=== PATIENT | male | born 1980 | race Caucasian/White ===

== ENCOUNTER 2019-03-08 17:03 | Emergency (ER) | payer OTHER ==
--- NOTE | 2019-03-08 17:40 | ERPHSYRPT ---
- History of Present Illness Time Seen by Provider: 03/08/19 17:27 Source: patient Exam Limitations: no limitations Patient Subjective Stated Complaint: Pt states "I have had several abscess in the same spot. I have had it surgically removed and it keeps coming back. It is on the left testicle. I saw Graciela Ramos today, I usually see Dr. Cummins. She gave me clindimycin prescription but the pain is killing me." Triage Nursing Assessment: Pt presented alert and oriented X 3, skin pwd. Pt ambulates with a wide gait, able to speak in clear full sentences. Pt has abscess noted to left posterior of testicle. Physician History: 38-year-old white male with history of diabetes asthma, sleep apnea The patient arrives with complaint of a swelling/abscess behind his left testicle for "a long time he states he went to see Graciela Ramos today who went ahead and place patient on clindamycin and set the patient up for a referral to Dr. Vallejo for possible removal of the abscess/cyst. He apparently is concerned that he wants this taken care of immediately he states he will not have it done unless under anesthesia. Is not having any fevers no nausea no vomiting. Patient does have an appointment for Dr. Vallejo in 2 days. Past medical history includes diabetes type 1, asthma, sleep apnea, hypercholesterolemia, and a sore a. Past surgical history includes abscess on his stomach. Timing/Duration: other (patient was abscess for "a long time") Severity: moderate Modifying Factors: Improves With: nothing Associated Symptoms: other (abscess behind left testicle), No abdominal pain, No shortness of breath, No heartburn, No diaphoresis, No cough, No chills, No chest pain, No fever, No headaches, No loss of appetite, No malaise, No rash, No syncope, No seizure, No weakness Allergies/Adverse Reactions: fentanyl Allergy (Intermediate, Verified 08/29/13 14:09) Itching Pt given Fentanyl in OR and started itching afterward, rash in MedSurg. Given Benadryl. acetaminophen [From Darvocet-N 100] Allergy (Verified 08/13/13 23:16) propoxyphene napsylate [From Darvocet-N 100] Allergy (Verified 08/13/13 23:16) Home Medications: Cholecalciferol (Vitamin D3) [Vitamin D] 50,000 unit PO .2XWEEKLY 12/10/16 [ History] Docusate Sodium [Doc-Q-Lace] 100 mg PO BID 12/10/16 [History] Dulaglutide [Trulicity] 1.5 mg SQ .WEEKLY 12/10/16 [History] Ezetimibe 10 mg [Zetia 10 MG] 10 mg PO DAILY 12/10/16 [History] Fenofibric Acid (Choline) [Fenofibric Acid] 135 mg PO DAILY 12/10/16 [History] Insulin Regular, Human [Humulin R] 500 unit SQ .DAILY 12/10/16 [History] Liraglutide [Victoza 3-Steven] 1.2 mg SQ DAILY 12/10/16 [History] Oxycodone HCl/Acetaminophen [Percocet 10-325 mg Tablet] 1 each PO QID 12/10/16 [ History] Hx Tetanus, Diphtheria Vaccination/Date Given: No Hx Influenza Vaccination/Date Given: No Hx Pneumococcal Vaccination/Date Given: No Immunizations Up to Date: Yes - Review of Systems Constitutional: No Fever, No Chills Eyes: No Symptoms Ears, Nose, & Throat: No Symptoms Respiratory: No Cough, No Dyspnea Cardiac: No Chest Pain, No Edema, No Syncope Abdominal/Gastrointestinal: No Abdominal Pain, No Nausea, No Vomiting, No Diarrhea Genitourinary Symptoms: Other (abscess behind left testicle) Musculoskeletal: No Back Pain, No Neck Pain Skin: No Rash Neurological: No Dizziness, No Focal Weakness, No Sensory Changes Psychological: No Symptoms Endocrine: No Symptoms All Other Systems: Reviewed and Negative - Past Medical History Pertinent Past Medical History: Yes Neurological History: No Pertinent History ENT History: No Pertinent History Cardiac History: High Cholesterol Respiratory History: Asthma, Sleep Apnea Endocrine Medical History: Diabetes Type I Musculoskeletal History: No Pertinent History GI Medical History: No Pertinent History History: No Pertinent History Psycho-Social History: No Pertinent History Male Reproductive Disorders: No Pertinent History 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 - Past Surgical History Past Surgical History: Yes Neuro Surgical History: No Pertinent History Cardiac: No Pertinent History Respiratory: No Pertinent History Gastrointestinal: No Pertinent History Genitourinary: No Pertinent History Musculoskeletal: No Pertinent History Male Surgical History: No Pertinent History Other Surgical History: abcess on stomach - Social History Smoking Status: Current every day smoker How long have you smoked: years Exposure to second hand smoke: Yes Drug Use: none Patient Lives Alone: No - Nursing Vital Signs Nursing Vital Signs: Initial Vital Signs Temperature 98.8 F 03/08/19 17:13 Pulse Rate 116 H 03/08/19 17:13 Respiratory Rate 18 03/08/19 17:13 Blood Pressure 137/84 03/08/19 17:13 O2 Sat by Pulse Oximetry 97 03/08/19 17:13 Pain Scale Pain Intensity 8 - Physical Exam General Appearance: no apparent distress, alert Eye Exam: PERRL/EOMI, eyes nml inspection Ears, Nose, Throat Exam: normal ENT inspection, TMs normal, pharynx normal, moist mucous membranes Neck Exam: normal inspection, non-tender, supple, full range of motion Respiratory Exam: normal breath sounds, lungs clear, No respiratory distress Cardiovascular Exam: regular rate/rhythm, normal heart sounds, normal peripheral pulses Gastrointestinal/Abdomen Exam: soft, normal bowel sounds, No tenderness, No mass Male Genitalia Exam: other (4-5 cm swelling behind the left testicle on the scrotal //perineal region area not hot does not appear to be tight) Back Exam: normal inspection, normal range of motion, No CVA tenderness, No vertebral tenderness Extremity Exam: normal inspection, normal range of motion, pelvis stable Neurologic Exam: alert, oriented x 3, cooperative, television receiver analyzer II-XII nml as tested, normal mood/affect, nml cerebellar function, nml station & gait, sensation nml, No motor deficits Skin Exam: normal color, warm, dry, No rash Lymphatic Exam: No adenopathy SpO2 Interpretation: normal (97%) SpO2: 97 - Course Nursing assessment & vital signs reviewed: Yes Ordered Tests: Active Orders 24 hr Category Date Time Status Wound Care STAT Care 03/08/19 19:57 Active CBC W DIFF Stat Lab 03/08/19 18:21 Completed CMP Stat Lab 03/08/19 18:21 Completed CULTURE,ABSCESS Stat Lab 03/08/19 19:57 Ordered CULTURE,WOUND Stat Lab 03/08/19 19:58 Uncollected Manual Differential NC Stat Lab 03/08/19 18:21 Completed Lab/Rad Data: Laboratory Result Diagrams 03/08/19 18:21 03/08/19 18:21 Laboratory Results 03/08/19 03/08/19 Range/Units 18:21 18:21 WBC 11.4 H (4.0-10.5) K/mm3 RBC 5.06 (4.1-5.6) M/mm3 Hgb 15.5 (12.5-18.0) gm/dl Hct 45.4 (42-50) % MCV 89.7 (78-100) fl MCH 30.6 (26-32) pg MCHC 34.1 (32-36) g/dl RDW 13.7 (11.5-14.0) % Plt Count 198 (150-450) K/mm3 MPV 11.8 H (6-9.5) fl Sodium 138 (137-145) mmol/L Potassium 4.0 (3.5-5.1) mmol/L Chloride 107 (98-107) mmol/L Carbon Dioxide 21 L (22-30) mmol/L Anion Gap 13.9 (5-15) MEQ/L BUN 10 (9-20) mg/dL Creatinine 0.66 (0.66-1.25) mg/dL Estimated GFR > 60.0 ML/MIN Glucose 299 H (74-106) mg/dL Calcium 9.5 (8.4-10.2) mg/dL Total Bilirubin 0.50 (0.2-1.3) mg/dL AST 27 (17-59) U/L ALT 30 (0-50) U/L Alkaline Phosphatase 106 (38-126) U/L Serum Total Protein 7.4 (6.3-8.2) g/dL Albumin 4.0 (3.5-5.0) g/dL - Progress Progress: improved Progress Note: 03/08/19 17:58 This is a 38-year-old white male with history of diabetes type 1, asthma, sleep apnea, hypercholesterolemia, MRSA. He arrives with complaint swelling behind his left testicle on his scrotum and perineal area for "a long time. He was apparently seen by Graciela Ramos today she apparently had ordered clindamycin for the patient and set the patient up with Dr. Vallejo on in 2 days for an appointment concerning this. Patient comes in today stating that he wants to have this taken care of tonight. He states he can't wait. He states he doesn't like the pain he is having. Is offered pain medication he does not want it at this time. He also says he will not let anybody work on this unless he is under anesthesia. I contacted Dr. Cummins he feels that the patient is at high risk for necrotizing fasciitis in view of the location of the area he didn't recommend that I talk with Dr.-Leuking Serrano felt like the patient should be referred to a urologist. I will go ahead and obtain a CBC and CMP Will discuss with [facility] for possible transfer when results are available. 03/08/19 19:34 I discussed the case with Dr. Pina at [facility] he accepted the patient for transfer. 03/08/19 19:59 Notified by the patient's nurse that the patient abscess that spontaneously ruptured. Patient states he is feeling much better. I had the patient's nurse culture the area. Will have them clean the area and apply bacitracin. the patient prefers to followup with -[facility] in 2 days to take his clindamycin as prescribed he has pain medications at home. Will advise him to do sitz baths. - Departure Departure Disposition: Home Clinical Impression: Scrotal abscess Condition: Fair Critical Care Time: No Referrals: LIT CUMMINS [Primary Care Provider] - Additional Instructions: Return home. Clean area and apply bacitracin several times daily. Sitz baths Clindamycin as prescribed by her family . Keep your appointment with Dr. Vallejo as previously arranged. 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 Return for acute distress or for any problems.
[2019-03-08 18:22] LABS: Hematocrit 45.4 % (42-50); Hemoglobin 15.5 gm/dl (12.5-18.0); Mean Cell Volume 89.7 fl (78-100); Mean Corpuscular Hemoglobin 30.6 pg (26-32); Mean Corpuscular Hgb Concent. 34.1 g/dl (32-36); Mean Platelet Volume 11.8 fl (6-9.5); Platelet Count 198 K/mm3 (150-450); Red Blood Count 5.06 M/mm3 (4.1-5.6); Red Cell Distribution Width 13.7 % (11.5-14.0); White Blood Count 11.4 K/mm3 (4.0-10.5)
[2019-03-08 18:40] LABS: ALKALINE PHOSPHATASE 106 U/L (38-126); ANION GAP 13.9 MEQ/L (5-15); BLOOD UREA NITROGEN 10 mg/dL (9-20); CHLORIDE 107 mmol/L (98-107); Calcium 9.5 mg/dL (8.4-10.2); Carbon Dioxide 21 mmol/L (22-30); Creatinine 1 0.66 mg/dL (0.66-1.25); Glucose 299 mg/dL (74-106); SGOT/AST 27 U/L (17-59); SGPT/ALT 30 U/L (0-50); SODIUM 138 mmol/L (137-145); Total Protein 7.4 g/dL (6.3-8.2)
[2019-03-08] MEDS ORDERED: BACIGUENT PACKET TP ONE (19:58)
[2019-03-08] MEDS ORDERED: BACIGUENT PACKET ONE (20:01)
[2019-03-08 20:12] VITALS: BP 104/56; PULSE 104; O2SAT 95
[2019-03-08 21:04] LABS: Eosinophil 2 % (0.00-3.0); Lymphocytes 24 % (24-44); Monocyte 8 % (0.0-12.0); Neutrophils 66 % (36.-66.); Platelet Estimate NORMAL (NORMAL); Polychromasia RARE; Total Cells Counted 100
== END 2019-03-08 20:16 | disposition home or self-care (01) ==
LOC: ED 17:03
DX: N49.2 Inflammatory disorders of scrotum (principal); Z86.14 Personal history of Methicillin resistant Staphylococcus aureus infection; E10.9 Type 1 diabetes mellitus without complications; Z79.4 Long term (current) use of insulin; Z79.899 Other long term (current) drug therapy
CPT/HCPCS: 36415; 80053; 85025; 87070; 99283; A9270-GY

== ENCOUNTER 2020-01-27 05:48 | Emergency (ER) | payer OTHER ==
--- NOTE | 2020-01-27 06:28 | ERPHSYRPT ---
- History of Present Illness Time Seen by Provider: 01/27/20 06:14 Source: patient Exam Limitations: no limitations Patient Subjective Stated Complaint: Patient states " I woke up in excruciating pain in my left knee." Patient states this has happened in the past. Patient states he has had ACL replacement 2014. Patient stated " pain started last night after I was lifting a bucket". Triage Nursing Assessment: Patient arrived to ER with brother driving. Patient A /O times 4. Patient answers questions appropriatley. Patient with strong pedal pulse to left lower extremity. Minimal swelling noted to left lower extremity. No swelling noted to left knee. Left and right knee equal in size. No redness or warmth noted to left knee. Patient states he is unable to bear weight on left lower extremity R/T to pain. Patient denies SOB. Patient denies N/V. Patient states he was lifting a bucket yesterday day evening when his started to bother him. Cap refill in extremity < 3 seconds. No bruising noted. Patient denies numbness/tingling Physician History: Patient is a 39-year-old male who presents to our ED with complaints of acute on chronic left knee pain. Patient states he was lifting a heavy bucket last night when he felt a sharp pain-like sensation at the anteromedial aspect of his left knee. Patient immediately put the bucket down. Patient states his knee felt very sore. Patient ambulated on his knee in spite of the pain. Patient awoke this morning with significant left knee pain. Pain described as an ache that is well localized. Pain reproduced with movement and palpation. Pain improved with rest. Patient admits to history of ACL construction. Patient states that he has significant arthritis and was told that he would need a knee replacement. Patient was scheduled for knee replacement but states that his surgeon retired. Patient states that he still needs a knee replacement. No other injuries reported. No other complaints. Patient declined pain medication. Patient states he does not take medication unless absolutely needed. Method of Injury: other (Lifting heavy bucket.) Occurred: yesterday Quality: constant, aching Severity of Pain-Max: moderate Severity of Pain-Current: mild Lower Extremities Pain: knee: left Modifying Factors: Improves With: movement, rest, other (Weightbearing worsens pain.) Associated Symptoms: unable to bear weight, No dizzy, No fainted, No seizure, No snapping sensation Allergies/Adverse Reactions: fentanyl Allergy (Intermediate, Verified 01/27/20 06:01) Itching Pt given Fentanyl in OR and started itching afterward, rash in MedSurg. Given Benadryl. acetaminophen [From Darvocet-N 100] Allergy (Verified 01/27/20 06:01) propoxyphene napsylate [From Darvocet-N 100] Allergy (Verified 01/27/20 06:01) Home Medications: Docusate Sodium [Doc-Q-Lace] 100 mg PO BID 12/10/16 [History] Dulaglutide [Trulicity] 1.5 mg SQ .WEEKLY 12/10/16 [History] Ezetimibe 10 mg [Zetia 10 MG] 10 mg PO DAILY 12/10/16 [History] Fenofibric Acid (Choline) [Fenofibric Acid] 135 mg PO DAILY 12/10/16 [History] Insulin Regular, Human [Humulin R] 500 unit SQ .DAILY 12/10/16 [History] Liraglutide [Victoza 3-Steven] 1.2 mg SQ DAILY 12/10/16 [History] Oxycodone HCl/Acetaminophen [Percocet 10-325 mg Tablet] 1 each PO TID 12/10/16 [ History] Hx Tetanus, Diphtheria Vaccination/Date Given: No Hx Influenza Vaccination/Date Given: Yes Hx Pneumococcal Vaccination/Date Given: No Immunizations Up to Date: Yes Travel Risk - International Travel Have you traveled outside of the country in past 3 weeks: No Have you or anyone close to you been diagnosed with or: No Do your reside in a community with a known COVID-19 case?: No - Review of Systems Constitutional: No Symptoms, No Fever, No Chills Eyes: No Symptoms Ears, Nose, & Throat: No Symptoms Respiratory: No Symptoms, No Cough, No Dyspnea Cardiac: No Symptoms, No Chest Pain, No Edema, No Syncope Abdominal/Gastrointestinal: No Symptoms, No Abdominal Pain, No Nausea, No Vomiting, No Diarrhea Genitourinary Symptoms: No Symptoms, No Dysuria Musculoskeletal: Injury, Joint Pain, No Back Pain, No Neck Pain, No Joint Redness, No Joint Swelling Skin: No Symptoms, No Rash Neurological: No Symptoms, No Dizziness, No Focal Weakness, No Sensory Changes Psychological: No Symptoms Endocrine: No Symptoms Hematologic/Lymphatic: No Symptoms Immunological/Allergic: No Symptoms All Other Systems: Reviewed and Negative - Past Medical History Pertinent Past Medical History: Yes Neurological History: No Pertinent History ENT History: No Pertinent History Cardiac History: High Cholesterol Respiratory History: Asthma, Sleep Apnea Endocrine Medical History: Diabetes Type I Musculoskeletal History: No Pertinent History GI Medical History: No Pertinent History History: No Pertinent History Psycho-Social History: No Pertinent History Male Reproductive Disorders: No Pertinent History 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 - Past Surgical History Past Surgical History: Yes Neuro Surgical History: No Pertinent History Cardiac: No Pertinent History Respiratory: No Pertinent History Gastrointestinal: No Pertinent History Genitourinary: No Pertinent History Musculoskeletal: No Pertinent History Male Surgical History: No Pertinent History Other Surgical History: abcess on stomach - Social History Smoking Status: Current every day smoker How long have you smoked: 25 years Exposure to second hand smoke: Yes Drug Use: none Patient Lives Alone: No - Nursing Vital Signs Nursing Vital Signs: Initial Vital Signs Temperature 98.5 F 01/27/20 05:59 Pulse Rate 112 H 01/27/20 05:59 Respiratory Rate 18 01/27/20 05:59 Blood Pressure 118/85 01/27/20 05:59 O2 Sat by Pulse Oximetry 97 01/27/20 05:59 Pain Scale Pain Intensity 4 - Physical Exam General Appearance: no apparent distress, alert Eyes, Ears, Nose, Throat Exam: moist mucous membranes Neck Exam: normal inspection, non-tender, supple Cardiovascular/Respiratory Exam: regular rate/rhythm, no ecchymosis, no respiratory distress, normal peripheral pulses, No splinting, No tachycardia, No decreased pulses, No accessory muscle use Gastrointestinal/Abdominal Exam: non-tender, guarding Back Exam: normal inspection, No vertebral tenderness, No muscle spasm Hips Exam: bilateral: non-tender, normal range of motion, no evidence of injury Legs Exam: bilateral leg: non-tender, normal inspection, normal range of motion , no evidence of injury Knees Exam: right knee: non-tender, normal inspection, normal range of motion, no evidence of injury, left knee: bone tenderness, pain (Tenderness to palpation at the anterior medial aspect of his left knee.), other (Left knee shows no erythema or obvious swelling. There is a well-healed anteriorly located scar over left knee from previous ACL reconstruction. All knee ligaments are stable. PT DP pulse palpable. Cap refill less than 2 seconds. Negative Homans sign. Compartments are soft. EHL, FHL, plantar flexion dorsiflexion within normal limits..) Ankle Exam: bilateral ankle: non-tender, normal inspection, normal range of motion, no evidence of injury Foot Exam: bilateral foot: non-tender, normal inspection, normal range of motion , no evidence of injury Neuro/Tendon Exam: normal sensation, normal motor functions, No no evidence tendon injury, No motor deficit, No sensory deficit, No tendon function deficit Mental Status Exam: alert, oriented x 3, cooperative Skin Exam: normal color, warm, dry SpO2 Interpretation: normal SpO2: 97 O2 Delivery: Room Air - Course Nursing assessment & vital signs reviewed: Yes - Radiology Exams Knee X-ray Interpretation: Interpreted by me (X-ray reveals tricompartmental arthritis. No fracture or dislocation. There are changes at the patella and at the tibial tuberosity possibly related to previous ACL reconstruction.) Ordered Tests: Active Orders 24 hr Category Date Time Status Gregg Bandage Application -[facility] STAT Care 01/27/20 06:47 Active Crutches STAT Care 01/27/20 06:47 Active KNEE (1 OR 2 VIEW) Stat Exams 01/27/20 06:16 Taken - Progress Progress: improved Progress Note: 01/27/20 07:02 Patient reassessed. Pain improved with rest. Patient claimed pain medication. Left knee reveals tricompartmental arthritis. No fractures or dislocations. Changes consistent with previous history of ACL reconstruction. Patient given bilateral axillary crutches and an Gregg wrap for comfort. Patient referred to orthopedic clinic. Patient will follow-up on Thursday as he is too tired to go to the orthopedic clinic today. Patient voiced no other complaints or concerns at this time. Patient states he is ready for discharge. Counseled pt/family regarding: lab results, diagnosis, need for follow-up, rad results - Departure Departure Disposition: Home Clinical Impression: Knee pain, Osteoarthritis Condition: Stable Critical Care Time: No Referrals: LIT CUMMINS [Primary Care Provider] - Instructions: Knee Pain (DC) Additional Instructions: Discharge/Care Plan MELI MCMILLAN was seen on 01/27/20 in the Emergency Room. The patient was counseled regarding Diagnosis,Lab results, Imaging studies, need for follow up and when to return to the Emergency Room. Prescriptions given: Discharge Note I have spoken with the patient and/or caregivers. I have explained the patient' s condition, diagnosis and treatment plan based on the information available to me at this time. I have answered the patient's and/or caregiver's questions and addressed any concerns. The patient and/or caregivers have as good understanding of the patient's diagnosis, condition and treatment plan as can be expected at this point. The vital signs have been stable. The patient's condition is stable and appropriate for discharge from the emergency department. The patient will pursue further outpatient evaluation with the primary care physician or other designated or consulting physician as outlined in the discharge instructions. The patient and/or caregivers are agreeable to this plan of care and follow-up instructions have been explained in detail. The patient and/or caregivers have received these instruction. The patient/and or caregivers are aware that any significant change in condition or worsening of symptoms should prompt an immediate return to this or the closest emergency department or call 911.
[2020-01-27 06:53] VITALS: BP 123/72; PULSE 99
[2020-01-27 07:00] VITALS: O2SAT 97
--- NOTE | 2020-01-27 08:41 | XRAY ---
Indication: Pain. Comparison: None AP/lateral left knee limited due to suboptimal technique on lateral view. Moderate tricompartmental degenerative changes and previous ACL reconstruction surgery. No other bony, articular, or soft tissue abnormalities.
== END 2020-01-27 07:10 | disposition home or self-care (01) ==
LOC: ED 05:48
DX: M25.562 Pain in left knee (principal); M19.90 Unspecified osteoarthritis, unspecified site; M13.862 Other specified arthritis, left knee; Z79.899 Other long term (current) drug therapy; E10.8 Type 1 diabetes mellitus with unspecified complications; G47.30 Sleep apnea, unspecified; E78.00 Pure hypercholesterolemia, unspecified; Z86.14 Personal history of Methicillin resistant Staphylococcus aureus infection
CPT/HCPCS: 73560; 99284

== ENCOUNTER 2020-05-16 11:49 | Day surgery (SDC) | payer OTHER ==
[2020-05-16] MEDS ORDERED: BUPIVACAINE 0.5% VIAL IJ ONE (11:50)
[2020-05-16] MEDS ORDERED: DIPRIVAN 200 MG/20 ML IV ONE ×2 (14:06→14:19)
[2020-05-16] MEDS ORDERED: Ketamine HCl 50 MG/ML ONE (14:06)
[2020-05-16] MEDS ORDERED: SUBLIMAZE 100 MCG/2 ML ONE (14:11)
--- NOTE | 2020-05-16 15:22 | XRAY ---
Indication: Left knee genicular nerve block. Intraoperative fluoroscopy was provided for 8 seconds. 2 digital spot images of the left knee submitted for interpretation demonstrates anterior needle tips projecting medial/lateral supracondylar and medial tibial plateau. Correlate with intraoperative findings/report. Incidental prior ACL reconstructive surgery
[2020-05-16] MEDS ORDERED: Lactated Ringers 1,000 ML IV ONE (15:31)
--- NOTE | 2020-05-16 15:41 | XRAY ---
8 seconds fluoroscopy time in surgery for left genicular nerve block.
== END 2020-05-16 14:35 | disposition home or self-care (01) ==
LOC: SDC-PAIN 11:49
PROVIDERS: ATTEND Psychiatry & Neurology Pain Medicine
DX: M17.12 Unilateral primary osteoarthritis, left knee (principal); E78.5 Hyperlipidemia, unspecified; E11.40 Type 2 diabetes mellitus with diabetic neuropathy, unspecified; F41.8 Other specified anxiety disorders; Z79.899 Other long term (current) drug therapy; Z86.79 Personal history of other diseases of the circulatory system
CPT/HCPCS: 64454; 73560; 77002; 82962; J2704; J3010

== ENCOUNTER 2021-02-13 10:02 | Day surgery (SDC) | payer OTHER ==
[2021-02-13] MEDS ORDERED: Sensorcaine 0.25% 10 ML IJ ONE (10:03)
[2021-02-13] MEDS ORDERED: Xylocaine 1% Vial 30 ML PF IJ ONE (10:03)
[2021-02-13] MEDS ORDERED: DIPRIVAN 200 MG/20 ML IV ONE (11:00)
--- NOTE | 2021-02-13 12:43 | XRAY ---
Indication: Left lumbar sympathetic nerve block. Intraoperative fluoroscopy provided for 29 seconds. 2 digital spot images submitted for interpretation demonstrates left posterior needle tip projecting just anterior to a mid lumbar segment, probably L3. Small amount of contrast injected for needle tip placement. Correlate with intraoperative findings/report.
--- NOTE | 2021-02-13 13:11 | XRAY ---
29 seconds of fluoroscopy was used in surgery for a left lumbar sympathetic nerve block.
[2021-02-13] MEDS ORDERED: Lactated Ringers 1,000 ML IV ONE (15:55)
== END 2021-02-13 11:59 | disposition home or self-care (01) ==
LOC: SDC-PAIN 10:02
PROVIDERS: ATTEND Psychiatry & Neurology Pain Medicine
DX: G90.522 Complex regional pain syndrome I of left lower limb (principal); I25.10 Atherosclerotic heart disease of native coronary artery without angina pectoris; M19.90 Unspecified osteoarthritis, unspecified site; E78.5 Hyperlipidemia, unspecified; F41.9 Anxiety disorder, unspecified; F32.9 Major depressive disorder, single episode, unspecified; E11.40 Type 2 diabetes mellitus with diabetic neuropathy, unspecified; Z79.899 Other long term (current) drug therapy
CPT/HCPCS: 64520; 72100; 77002; 82947; J2001; J2704; Q9966

== ENCOUNTER 2024-10-08 23:48 | Emergency (ER) | payer OTHER ==
[2024-10-08 23:55] VITALS: TEMP 98.6
--- NOTE | 2024-10-09 00:27 | ERPHSYRPT ---
- History of Present Illness Historian: patient Exam Limitations: no limitations Patient Subjective Stated Complaint: initially felt like gerd, then chest pain: "felt tight and like someone was squeezing me". Triage Nursing Assessment: Pt brought in by EMS. Pt c/o chest pain to center of his chest radiating to back, describes it as pressure and heaviness, a squeezing feeling. Pt thought at first it was GERD and took a tums but then the pain began. Lungs clear, heart tones reg/rapid. No edema noted. Physician History: Patient has squeezing substernal chest pain. He said it was pretty intense at first. It started around 9 PM. He called EMS and this was after a couple hours. He got a nitro and the pain decrease and then finally went away. He did not have any nausea or vomiting or shortness of breath with it. He is still pain-free at this time. He describes the pain as tight and squeezing. He said it radiated to his back. He has a history of diabetes and high cholesterol. He also has family history of heart disease as far as his risk factors ago.EMS gave him sublingual nitro and then Nitropaste. Location: substernal Prior Chest Pain/Cardiac Workup: no prior chest pain, no prior cardiac workup Nitro Today/Relief: 0.4 mg x 1, provided by EMS Aspirin Treatment Today: 81 mg x 4, provided by EMS Allergies/Adverse Reactions: fentanyl Allergy (Intermediate, Verified 10/08/24 23:55) Itching Pt given Fentanyl in OR and started itching afterward, rash in MedSurg. Given Benadryl. acetaminophen [From Darvocet-N 100] Allergy (Verified 10/08/24 23:55) propoxyphene napsylate [From Darvocet-N 100] Allergy (Verified 10/08/24 23:55) Home Medications: Docusate Sodium [Doc-Q-Lace] 100 mg PO BID 12/10/16 [History] Dulaglutide [Trulicity] 1.5 mg SQ .WEEKLY 12/10/16 [History] Ezetimibe 10 mg [Zetia 10 MG] 10 mg PO DAILY 12/10/16 [History] Fenofibric Acid (Choline) [Fenofibric Acid] 135 mg PO DAILY 12/10/16 [History] Insulin Regular, Human [Humulin R] 500 unit SQ .DAILY 12/10/16 [History] Liraglutide [Victoza 3-Steven] 1.2 mg SQ DAILY 12/10/16 [History] Oxycodone HCl/Acetaminophen [Percocet 10-325 mg Tablet] 1 each PO TID 12/10/16 [History] Hx Tetanus, Diphtheria Vaccination/Date Given: No Hx Influenza Vaccination/Date Given: No Hx Pneumococcal Vaccination/Date Given: No Travel Risk - International Travel Have you traveled outside of the country in past 3 weeks: No - Emerging Infectious Disease Are you exhibiting symptoms associated with any current EIDs: Yes Symptoms: Other (Please Comment) Comment: reflux - Review of Systems Constitutional: No Symptoms Eyes: No Symptoms Respiratory: No Symptoms Cardiac: Chest Pain Abdominal/Gastrointestinal: No Symptoms All Other Systems: Reviewed and Negative - Past Medical History Pertinent Past Medical History: Yes Neurological History: No Pertinent History ENT History: No Pertinent History Cardiac History: High Cholesterol Respiratory History: Asthma, Sleep Apnea Endocrine Medical History: Diabetes Type II Musculoskeletal History: No Pertinent History GI Medical History: GERD History: No Pertinent History Psycho-Social History: No Pertinent History Male Reproductive Disorders: No Pertinent History 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 ABSCESS, ABSCESS TO GROIN - Past Surgical History Past Surgical History: Yes Neuro Surgical History: No Pertinent History Cardiac: No Pertinent History Respiratory: No Pertinent History Gastrointestinal: No Pertinent History Genitourinary: No Pertinent History Musculoskeletal: No Pertinent History, Orthopedic Surgery Male Surgical History: No Pertinent History Other Surgical History: abcess on stomach, left knee ACL surgery - Social History Smoking Status: Current every day smoker How long have you smoked: 35 yrs Exposure to second hand smoke: Yes Drug Use: none Patient Lives Alone: No - Social Determinants of Health Will the patient participate in the screening: Yes Do you worry about a steady place to live?: No Do you have any problems with any of the following?: No known problems In the past 12 months,have you had to go without utilities?: No Transportation Issues: No Has anyone in your support network made you feel unsafe?: No Have you or anyone in your house had to go without enough: No - Nursing Vital Signs Nursing Vital Signs: Initial Vital Signs Temperature 98.6 F 10/08/24 23:53 Pulse Rate 108 H 10/08/24 23:53 Respiratory Rate 22 10/08/24 23:53 Blood Pressure 147/84 10/08/24 23:53 O2 Sat by Pulse Oximetry 99 10/08/24 23:53 Pain Scale Pain Intensity 0 - Physical Exam General Appearance: no apparent distress Eye Exam: PERRL/EOMI Ears, Nose, Throat Exam: normal ENT inspection Respiratory Exam: normal breath sounds, lungs clear, No chest tenderness Cardiovascular Exam: regular rate/rhythm, normal heart sounds Gastrointestinal/Abdomen Exam: soft, normal bowel sounds, No tenderness, No distention, No mass Back Exam: normal inspection Extremity Exam: normal inspection Neurologic Exam: alert, oriented x 3 Skin Exam: normal color, warm SpO2: 99 Ordered Tests: Active Orders 24 hr Category Date Time Status EKG-ER Only STAT Care 10/09/24 00:26 Active IV Insertion STAT Care 10/09/24 00:26 Active Pulse Oximetry (ED) STAT Care 10/09/24 00:26 Active CHEST 1 VIEW (PORTABLE) Stat Exams 10/09/24 00:27 Taken CBC Q48H Lab 10/10/24 06:00 Ordered CBC Q48H Lab 10/12/24 06:00 Ordered CBC Q48H Lab 10/14/24 06:00 Ordered CBC Q48H Lab 10/16/24 06:00 Ordered CBC Q48H Lab 10/18/24 06:00 Ordered CBC Q48H Lab 10/20/24 06:00 Ordered CBC Q48H Lab 10/22/24 06:00 Ordered CBC Stat Lab 10/09/24 03:41 Ordered CBC W DIFF Stat Lab 10/09/24 00:30 Completed CMP Stat Lab 10/09/24 00:30 Completed PROTIME WITH INR Stat Lab 10/09/24 03:39 Ordered PROTIME WITH INR Stat Lab 10/09/24 03:41 Ordered PTT Q4H Lab 10/09/24 03:45 Ordered PTT Q4H Lab 10/09/24 07:45 Ordered PTT Q4H Lab 10/09/24 11:45 Ordered PTT Q4H Lab 10/09/24 15:45 Ordered PTT Q4H Lab 10/09/24 19:45 Ordered PTT Q4H Lab 10/09/24 23:45 Ordered PTT Q4H Lab 10/10/24 03:45 Ordered PTT Q4H Lab 10/10/24 07:45 Ordered PTT Q4H Lab 10/10/24 11:45 Ordered PTT Q4H Lab 10/10/24 15:45 Ordered PTT Q4H Lab 10/10/24 19:45 Ordered PTT Q4H Lab 10/10/24 23:45 Ordered PTT Stat Lab 10/09/24 03:41 Ordered TROPONIN Q4H Lab 10/09/24 00:30 Completed TROPONIN Q4H Lab 10/09/24 02:48 Received TROPONIN Q4H Lab 10/09/24 08:30 Ordered Medication Summary Generic Name Dose Route Start Last Admin Trade Name Freq PRN Reason Stop Dose Admin Heparin Sodium/Dextrose 25,000 units in 250 mls @ 12.684 mls/hr 10/09/24 04:00 Heparin 25,000 Units/D5w: Use Order Set Jason IV 11/08/24 03:59 .[id number] ZOIE Protocol 12 UNITS/KG/HR Discontinued Medications Generic Name Dose Route Start Last Admin Trade Name Freq PRN Reason Stop Dose Admin Heparin Sodium (Beef Lung) 5,000 unit 10/09/24 03:39 Heparin 5000 Units/0.5 Ml 5,000 Unit/0.5 Ml Syr IV 10/09/24 03:40 STAT ONE Lab/Rad Data: Laboratory Result Diagrams 10/09/24 00:30 10/09/24 00:30 Laboratory Results 10/09/24 10/09/24 10/09/24 Range/Units 02:48 00:30 00:30 WBC (4.23-9.07) x10^3/uL RBC (4.63-6.08) x10^6/uL Hgb (13.7-17.5) g/dL Hct (40.1-51.0) % MCV (79.0-92.2) fL MCH (25.7-32.2) pg MCHC (32.3-36.5) g/dL RDW (11.6-14.4) % Plt Count (163-337) x10^3/uL MPV (9.4-12.4) fL Gran % (34.0-67.9) % Immature Gran % (Auto) (0.001-0.429) % Nucleat RBC Rel Count (0.00-0.2) % Eos # (Auto) (0.04-0.54) x10^3/uL Immature Gran # (Auto) (0.001-0.031) x10^3u/L Absolute Lymphs (auto) (1.32-3.57) x10^3/uL Absolute Monos (auto) (0.30-0.82) x10^3/uL Absolute Nucleated RBC (0.00-0.012) x10^3u/L Lymphocytes % (21.8-53.1) % Monocytes % (5.3-12.2) % Eosinophils % (0.8-7.0) % Basophils % (0.2-1.2) % Absolute Granulocytes (1.78-5.38) x10^3/uL Basophils # (0.01-0.08) x10^3/uL Sodium 137 (135-145) mmol/L Potassium 4.4 (3.5-5.1) mmol/L Chloride 106 (98-107) mmol/L Carbon Dioxide 21 L (22-30) mmol/L Anion Gap 14.1 (5-15) MEQ/L BUN 12 (9-20) mg/dL Creatinine 0.68 (0.66-1.25) mg/dL Estimated GFR 116.1 ML/MIN Glucose 243 H (74-106) mg/dL Calcium 9.5 (8.4-10.2) mg/dL Total Bilirubin 0.70 (0.2-1.3) mg/dL AST 54 (17-59) U/L ALT 49 (0-50) U/L Alkaline Phosphatase 67 (38-126) U/L Troponin I 0.819 H* 0.012 (0.000-0.033) ng/mL Serum Total Protein 7.2 (6.3-8.2) g/dL Albumin 4.3 (3.5-5.0) g/dL 10/09/24 Range/Units 00:30 WBC 10.5 H (4.23-9.07) x10^3/uL RBC 5.10 (4.63-6.08) x10^6/uL Hgb 15.3 (13.7-17.5) g/dL Hct 45.0 (40.1-51.0) % MCV 88.2 (79.0-92.2) fL MCH 30.0 (25.7-32.2) pg MCHC 34.0 (32.3-36.5) g/dL RDW 12.8 (11.6-14.4) % Plt Count 244 (163-337) x10^3/uL MPV 11.3 (9.4-12.4) fL Gran % 51.7 (34.0-67.9) % Immature Gran % (Auto) 0.4 (0.001-0.429) % Nucleat RBC Rel Count 0.0 (0.00-0.2) % Eos # (Auto) 0.27 (0.04-0.54) x10^3/uL Immature Gran # (Auto) 0.04 H (0.001-0.031) x10^3u/L Absolute Lymphs (auto) 4.05 H (1.32-3.57) x10^3/uL Absolute Monos (auto) 0.62 (0.30-0.82) x10^3/uL Absolute Nucleated RBC 0.00 (0.00-0.012) x10^3u/L Lymphocytes % 38.5 (21.8-53.1) % Monocytes % 5.9 (5.3-12.2) % Eosinophils % 2.6 (0.8-7.0) % Basophils % 0.9 (0.2-1.2) % Absolute Granulocytes 5.45 H (1.78-5.38) x10^3/uL Basophils # 0.09 H (0.01-0.08) x10^3/uL Sodium (135-145) mmol/L Potassium (3.5-5.1) mmol/L Chloride (98-107) mmol/L Carbon Dioxide (22-30) mmol/L Anion Gap (5-15) MEQ/L BUN (9-20) mg/dL Creatinine (0.66-1.25) mg/dL Estimated GFR ML/MIN Glucose (74-106) mg/dL Calcium (8.4-10.2) mg/dL Total Bilirubin (0.2-1.3) mg/dL AST (17-59) U/L ALT (0-50) U/L Alkaline Phosphatase (38-126) U/L Troponin I (0.000-0.033) ng/mL Serum Total Protein (6.3-8.2) g/dL Albumin (3.5-5.0) g/dL - Progress Progress Note: On the differential was a cardiac event of course. Also was unstable angina and AMI.His EKG showed no acute changes. He was pain-free throughout his stay. The EKG was interpreted by me. Normal sinus rhythm he had a right bundle branch block which is old as compared to an old when. No axis deviation noted. Chest film showed no acute findings as interpreted by me. His troponin went from 0.02-0.8. He was still pain-free. I started him on a heparin drip and I am going to call [facility] for transfer. 10/09/24 03:44 10/09/24 03:46 - Departure Departure Disposition: Transfer Clinical Impression: Non-STEMI (non-ST elevated myocardial infarction) Condition: Stable Critical Care Time(excluding separately billable procedures): Critical 30-74 mins Referrals: LIT CUMMINS [Primary Care Provider] - Follow up/PCP as directed
[2024-10-09 00:32] LABS: Absolute Neutrophil Ct (ANC) 5.45 x10^3/uL (1.78-5.38); BASOPHIL % 0.9 % (0.2-1.2); Basophil (Absolute #) 0.09 x10^3/uL (0.01-0.08); Eosinophil % 2.6 % (0.8-7.0); Eosinophil (Absolute #) 0.27 x10^3/uL (0.04-0.54); Hemoglobin 15.3 g/dL (13.7-17.5); IMMATURE GRAN # 0.04 x10^3u/L (0.001-0.031); IMMATURE GRAN % 0.4 % (0.001-0.429); Lymphocyte (Absolute #) 4.05 x10^3/uL (1.32-3.57); Lymphocytes % 38.5 % (21.8-53.1); Mean Cell Volume 88.2 fL (79.0-92.2); Mean Platelet Volume 11.3 fL (9.4-12.4); Monocyte (Absolute #) 0.62 x10^3/uL (0.30-0.82); Monocytes % 5.9 % (5.3-12.2); Neutrophil % 51.7 % (34.0-67.9); Platelet Count 244 x10^3/uL (163-337); Red Cell Distribution Width 12.8 % (11.6-14.4); White Blood Count 10.5 x10^3/uL (4.23-9.07)
[2024-10-09 00:38] LABS: ALBUMIN 4.3 g/dL (3.5-5.0); ANION GAP 14.1 MEQ/L (5-15); BILIRUBIN,TOTAL 0.7 mg/dL (0.2-1.3); Calcium 9.5 mg/dL (8.4-10.2); Creatinine 1 0.68 mg/dL (0.66-1.25); EST GLOMERULAR FILTRATION RATE 116.1 ML/MIN; Potassium 4.4 mmol/L (3.5-5.1); Total Protein 7.2 g/dL (6.3-8.2)
[2024-10-09 04:04] LABS: Hematocrit 44.5 % (40.1-51.0); Hemoglobin 15.3 g/dL (13.7-17.5); Mean Cell Volume 89.5 fL (79.0-92.2); Mean Corpuscular Hemoglobin 30.8 pg (25.7-32.2); Mean Corpuscular Hgb Concent. 34.4 g/dL (32.3-36.5); Platelet Count 237 x10^3/uL (163-337); Red Blood Count 4.97 x10^6/uL (4.63-6.08); White Blood Count 11.4 x10^3/uL (4.23-9.07)
[2024-10-09] MEDS ORDERED: Heparin 25,000 units/D5W: USE ORDER SET PROTO 25,000 UNITS/250 ML BAG IV ONE (04:10)
[2024-10-09] MEDS ORDERED: HEPARIN 5000 UNITS/0.5 ML (HIGH RISK MED) ONE (04:10)
[2024-10-09] MEDS: HEPARIN 5000 UNITS/0.5 ML (HIGH RISK MED) IV ONE (04:11)
[2024-10-09] MEDS: Heparin 25,000 units/D5W: USE ORDER SET PROTO 25,000 UNITS/250 ML BAG IV SCH (04:11)
[2024-10-09 04:19] LABS: INR 0.89 (0.8-3.0); PROTIME 9.8 SECONDS (9.4-12.5); PTT 24.4 SECONDS (25.1-36.5)
[2024-10-09 04:37] VITALS: BP 112/70; PULSE 110; RESP 18; O2SAT 96
--- NOTE | 2024-10-09 08:12 | XRAY ---
Indication: Chest pain. Comparison: April 27, 2011 Portable chest remains inflated and clear. Heart not enlarged. Bony thorax intact. No new/acute findings.
== END 2024-10-09 04:58 | disposition short-term general hospital (02) ==
LOC: ED 23:48
DX: I21.4 Non-ST elevation (NSTEMI) myocardial infarction (principal); E11.9 Type 2 diabetes mellitus without complications; E78.5 Hyperlipidemia, unspecified; Z79.85 Long-term (current) use of injectable non-insulin antidiabetic drugs; Z79.4 Long term (current) use of insulin; Z79.899 Other long term (current) drug therapy; Z72.0 Tobacco use
CPT/HCPCS: 36415; 71045; 80053; 84484; 85025; 85027; 85610; 85730; 93005; 94760; 96374; 96376; 99285; 99291; J1644

== ENCOUNTER 2024-10-28 23:55 | Emergency (ER) | payer OTHER ==
--- NOTE | 2024-10-29 00:27 | ERPHSYRPT ---
- History of Present Illness Source: patient Exam Limitations: no limitations Physician History: Patient had an insulin pump it has been moved. He now has a what appears to be an abscess forming there. It is very firm. It is erythematous I do not know if it is cellulitic. Is definitely not indurated at this point. He has no fever chills or other systemic symptoms. He has a history of MRSA. It looks like a MRSA abscess and is very early stages to me. It does not appear that it is time to incise and drain it because it is extremely firm.It is more of a nodule. There is no fluctuation to it. Allergies/Adverse Reactions: fentanyl Allergy (Intermediate, Verified 10/29/24 00:19) Itching Pt given Fentanyl in OR and started itching afterward, rash in MedSurg. Given Benadryl. acetaminophen [From Darvocet-N 100] Allergy (Verified 10/29/24 00:19) propoxyphene napsylate [From Darvocet-N 100] Allergy (Verified 10/29/24 00:19) Home Medications: Docusate Sodium [Doc-Q-Lace] 100 mg PO BID 12/10/16 [History] Dulaglutide [Trulicity] 1.5 mg SQ .WEEKLY 12/10/16 [History] Ezetimibe 10 mg [Zetia 10 MG] 10 mg PO DAILY 12/10/16 [History] Fenofibric Acid (Choline) [Fenofibric Acid] 135 mg PO DAILY 12/10/16 [History] Insulin Regular, Human [Humulin R] 500 unit SQ .DAILY 12/10/16 [History] Liraglutide [Victoza 3-Steven] 1.2 mg SQ DAILY 12/10/16 [History] Oxycodone HCl/Acetaminophen [Percocet 10-325 mg Tablet] 1 each PO TID 12/10/16 [History] Hx Tetanus, Diphtheria Vaccination/Date Given: No Hx Influenza Vaccination/Date Given: No Hx Pneumococcal Vaccination/Date Given: No Travel Risk - Emerging Infectious Disease Are you exhibiting symptoms associated with any current EIDs: Yes Symptoms: Other (Please Comment) Comment: reflux - Review of Systems Constitutional: No Symptoms Eyes: No Symptoms Skin: Skin Lesions - Past Medical History Pertinent Past Medical History: Yes Neurological History: No Pertinent History ENT History: No Pertinent History Cardiac History: High Cholesterol Respiratory History: Asthma, Sleep Apnea Endocrine Medical History: Diabetes Type II Musculoskeletal History: No Pertinent History GI Medical History: GERD History: No Pertinent History Psycho-Social History: No Pertinent History Male Reproductive Disorders: No Pertinent History 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 ABSCESS, ABSCESS TO GROIN - Past Surgical History Past Surgical History: Yes Neuro Surgical History: No Pertinent History Cardiac: No Pertinent History Respiratory: No Pertinent History Gastrointestinal: No Pertinent History Genitourinary: No Pertinent History Musculoskeletal: No Pertinent History, Orthopedic Surgery Male Surgical History: No Pertinent History Other Surgical History: abcess on stomach, left knee ACL surgery - Social History Smoking Status: Current every day smoker How long have you smoked: 35 yrs Exposure to second hand smoke: Yes Drug Use: none Patient Lives Alone: No - Social Determinants of Health Will the patient participate in the screening: Yes Do you worry about a steady place to live?: No In the past 12 months,have you had to go without utilities?: No Transportation Issues: No Has anyone in your support network made you feel unsafe?: No Have you or anyone in your house had to go w/o enough food: No - Physical Exam General Appearance: no apparent distress Eye Exam: PERRL/EOMI Skin Exam: other (Early firm nodular area on his left flank. It appears to be an early abscess. It is not ready for Incision and drainage.) - Course Nursing assessment & vital signs reviewed: Yes - Departure Departure Disposition: Home Clinical Impression: Abscess Condition: Stable Critical Care Time: No Referrals: LIT CUMMINS [Primary Care Provider] - Follow up/PCP as directed Instructions: Skin abscess
[2024-10-29 00:29] VITALS: RESP 20; TEMP 99; O2SAT 97
[2024-10-29] MEDS ORDERED: BACTRIM DS TABLET PO ONE (00:30)
[2024-10-29] MEDS: BACTRIM DS TABLET PO STA (00:31)
[2024-10-29 00:32] VITALS: BP 136/83; PULSE 104
== END 2024-10-29 00:40 | disposition home or self-care (01) ==
LOC: ED 23:55
DX: L02.211 Cutaneous abscess of abdominal wall (principal); E78.5 Hyperlipidemia, unspecified; E11.9 Type 2 diabetes mellitus without complications; Z79.85 Long-term (current) use of injectable non-insulin antidiabetic drugs; Z79.4 Long term (current) use of insulin; Z79.899 Other long term (current) drug therapy; Z72.0 Tobacco use
CPT/HCPCS: 99281; 99283; A9270-GY